=== PATIENT | male | born 1995 | race Two or more races ===

== ENCOUNTER 2024-11-25 14:06 | Emergency (ER) | payer SELFPAY ==
[2024-11-25 14:40] VITALS: BP 163/98; PULSE 115; RESP 18; TEMP 98.9; BMI 29.5
[2024-11-25] MEDS ORDERED: IBUPROFEN 600 MG TABLET (FP) PO ONE (16:52)
[2024-11-25] MEDS: IBUPROFEN 600 MG TABLET (FP) PO ONE (16:53)
== END 2024-11-25 18:05 | disposition home or self-care (01) ==
LOC: JERFT 14:06 → JER 14:06 → JERFT 18:05
DX: J10.1 Influenza due to other identified influenza virus with other respiratory manifestations (principal); R09.81 Nasal congestion; R05.9 Cough, unspecified; M53.81 Other specified dorsopathies, occipito-atlanto-axial region; R50.9 Fever, unspecified; Z20.822 Contact with and (suspected) exposure to COVID-19
CPT/HCPCS: 0241U-QW; 99283-25